=== PATIENT | female | born 1965 | race Caucasian/White ===

== ENCOUNTER 2018-01-22 17:47 | Inpatient (IN) ==
[2018-01-22] MEDS ORDERED: ceFAZolin 2 GM Premix Inj 2 GM/50 ML PIGGYBACK IV.SIG ONE (17:52)
[2018-01-22] MEDS ORDERED: Diphtheria/Tetanus/Pertussis Vaccine Inj 0.5 ML Syringe IM ONE (17:52)
[2018-01-22] MEDS ORDERED: fentaNYL Citrate Inj 100 MCG/2 ML Ampul ONE (17:57)
[2018-01-22 18:14] LABS: Baso % (Auto) 0.2 % (0.0-2.0); Eos % (Auto) 0.6 % (0.0-4.0); Hematocrit 32.5 % (35.0-46.0); Hemoglobin 11.1 gm/dL (11.6-15.3); Lymph # (Auto) 1.9 th/mm3 (1.0-4.8); Mean Corpuscular HGB Conc 34.2 % (32.0-36.0); Mean Corpuscular Hemoglobin 30.2 pg (27.0-34.0); Mean Corpuscular Volume 88.3 fL (80.0-100.0); Mean Platelet Volume 8.9 fL (7.0-11.0); Mono # (Auto) 0.3 th/mm3 (0.0-0.9); Neut # (Auto) 4.3 th/mm3 (1.8-7.7); Neut % (Auto) 66.2 % (16.0-70.0); Platelet Count 166 th/mm3 (150-450); Red Blood Count 3.68 mil/mm3 (4.00-5.30); Red Cell Distribution Width 13.4 % (11.6-17.2); White Blood Count 6.5 th/mm3 (4.0-11.0)
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
[2018-01-22] MEDS ORDERED: Bisacodyl 10 MG Supp RECTAL PRN (18:20)
[2018-01-22] MEDS ORDERED: Morphine Inj 4 MG/ML Vial IV.PUSH PRN (18:20)
[2018-01-22] MEDS ORDERED: Post-op Orders (for Pharmacy) OTHER STA (18:20)
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
[2018-01-22] MEDS ORDERED: Lidocaine 1% Inj 30 ML Vial INFILTRATN ONE (18:28)
[2018-01-22] MEDS ORDERED: HYDROmorphone PF Inj 2 MG/ML Vial IV.PUSH PRN ×2 (18:29→22:57)
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
[2018-01-22 18:40] LABS: Activated Partial Thrombo Time 21.7 sec (24.3-30.1); INR 1.4 Ratio; Prothrombin Time 13.8 sec (9.8-11.6)
[2018-01-22] MEDS ORDERED: Lidocaine PF 1% Inj 30 ML Vial ONE (18:47)
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
[2018-01-23] MEDS ORDERED: Morphine Inj 4 MG/ML Vial IV.PUSH PRN (02:42)
[2018-01-23] MEDS: Lidocaine 5% Patch T-DERMAL SCH ×2 (03:41→13:56)
[2018-01-23] MEDS: Methocarbamol 500 MG Tablet PO SCH ×4 (03:44→21:59)
[2018-01-23] MEDS: Senna/Docusate Sodium 8.6/50 MG Tablet PO SCH ×3 (03:45→21:57)
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
[2018-01-23 13:42] LABS: Baso % (Auto) 0.1 % (0.0-2.0); Hematocrit 33.3 % (35.0-46.0); Hemoglobin 11.7 gm/dL (11.6-15.3); Lymph % (Auto) 10.5 % (9.0-44.0); Mean Corpuscular HGB Conc 35.2 % (32.0-36.0); Mean Corpuscular Hemoglobin 30.7 pg (27.0-34.0); Mean Platelet Volume 9.3 fL (7.0-11.0); Mono # (Auto) 0.7 th/mm3 (0.0-0.9); Mono % (Auto) 7.1 % (0.0-8.0); Neut # (Auto) 8.1 th/mm3 (1.8-7.7); Neut % (Auto) 82.3 % (16.0-70.0); Platelet Count 180 th/mm3 (150-450); Red Blood Count 3.83 mil/mm3 (4.00-5.30); Red Cell Distribution Width 13.3 % (11.6-17.2); White Blood Count 9.9 th/mm3 (4.0-11.0)
[2018-01-23 13:54] LABS: Anion Gap 9 meq/L (5-15); Blood Urea Nitrogen 11 mg/dL (7-18); Calcium 8.9 mg/dL (8.5-10.1); Carbon Dioxide 26.2 meq/L (21.0-32.0); Chloride 107 meq/L (98-107); Glomerular Filtration Rate Greater Than 89 mL/min (>89); Glucose,Random 116 mg/dL (74-106); Potassium 3.8 meq/L (3.5-5.1); Sodium 142 meq/L (136-145)
--- NOTE | 2018-01-23 14:34 | XR ---
EXAM DATE: 01/23/2018 1:41 PM EDT AGE/SEX: 53 years / Female INDICATIONS: Right wrist pain. CLINICAL DATA: This is the patient's subsequent encounter. Patient reports that signs and symptoms h ave been present for 2 days and indicates a pain score of 10/10. MEDICAL/SURGICAL HISTORY: None. None. COMPARISON: No prior exams available for comparison. FINDINGS: There is a nondisplaced fracture extending through the distal ulna at the base of the ulnar styloid w ith intra-articular extension. There is subtle lucency in the distal radius which also may reflect fr acture. The alignment is anatomic. CONCLUSION: Fracture of the distal ulna and probable nondisplaced distal radius fracture. Electronically signed by: Rufino Savage MD 01/23/2018 2:33 PM EDT
[2018-01-24 05:08] LABS: Baso % (Auto) 0.2 % (0.0-2.0); Eos % (Auto) 0.8 % (0.0-4.0); Hematocrit 32.7 % (35.0-46.0); Hemoglobin 11.4 gm/dL (11.6-15.3); Lymph # (Auto) 1.3 th/mm3 (1.0-4.8); Lymph % (Auto) 22.3 % (9.0-44.0); Mean Corpuscular HGB Conc 34.7 % (32.0-36.0); Mean Corpuscular Hemoglobin 30.2 pg (27.0-34.0); Mean Platelet Volume 8.9 fL (7.0-11.0); Mono # (Auto) 0.4 th/mm3 (0.0-0.9); Mono % (Auto) 7.3 % (0.0-8.0); Neut % (Auto) 69.4 % (16.0-70.0); Platelet Count 133 th/mm3 (150-450); Red Blood Count 3.76 mil/mm3 (4.00-5.30); Red Cell Distribution Width 13.6 % (11.6-17.2); White Blood Count 5.8 th/mm3 (4.0-11.0)
[2018-01-24 05:32] LABS: Anion Gap 7 meq/L (5-15); Blood Urea Nitrogen 10 mg/dL (7-18); Calcium 8.9 mg/dL (8.5-10.1); Carbon Dioxide 27.9 meq/L (21.0-32.0); Chloride 108 meq/L (98-107); Glomerular Filtration Rate Greater Than 89 mL/min (>89); Glucose,Random 92 mg/dL (74-106); Potassium 3.9 meq/L (3.5-5.1); Sodium 143 meq/L (136-145)
[2018-01-24] MEDS: Methocarbamol 500 MG Tablet PO SCH ×3 (06:24→22:33)
[2018-01-24] MEDS: Senna/Docusate Sodium 8.6/50 MG Tablet PO SCH ×2 (09:38→22:33)
[2018-01-24] MEDS: Enoxaparin Inj 30 MG/0.3 ML Syringe SQ SCH (09:38)
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
--- NOTE | 2018-01-24 14:47 | XR ---
EXAM DATE: 01/24/2018 2:36 PM EDT AGE/SEX: 53 years / Female INDICATIONS: Trauma. CLINICAL DATA: This is the patient's initial encounter. Patient reports that signs and symptoms have been present for 3 days and indicates a pain score of 7/10. MEDICAL/SURGICAL HISTORY: . pneumothorax, broken ribs None. COMPARISON: [facility], CHEST 1V SINGLE AP, 01/23/2018. . FINDINGS: The chest is stable in appearance. Tiny pneumothorax described on prior CT is not visualized. Multiple right-sided rib fractures are again noted. Mild atelectasis remains evident in the left base. Heart and mediastinal structures are stable. CONCLUSION: Stable chest without radiographically apparent pneumothorax. Right-sided rib fractures again noted. Stable mild left basilar atelectasis. Electronically signed by: Jose Cantrell MD 01/24/2018 2:46 PM EDT
[2018-01-24] MEDS: Lidocaine 5% Patch T-DERMAL SCH (15:43)
[2018-01-25] MEDS: Enoxaparin Inj 30 MG/0.3 ML Syringe SQ SCH ×3 (02:31→22:26)
[2018-01-25] MEDS: Methocarbamol 500 MG Tablet PO SCH ×2 (06:40→14:42)
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
[2018-01-25] MEDS: Lidocaine 5% Patch T-DERMAL SCH (09:02)
[2018-01-25] MEDS: Senna/Docusate Sodium 8.6/50 MG Tablet PO SCH ×2 (09:02→22:18)
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
[2018-01-25] MEDS: Melatonin 5 MG Tablet PO SCH (22:25)
[2018-01-26] MEDS: Melatonin 5 MG Tablet PO SCH ×2 (08:45→21:38)
[2018-01-26] MEDS: Methocarbamol 500 MG Tablet PO SCH ×2 (08:46→14:37)
[2018-01-26] MEDS: Senna/Docusate Sodium 8.6/50 MG Tablet PO SCH ×2 (09:05→21:37)
[2018-01-26] MEDS: Lidocaine 5% Patch T-DERMAL SCH (09:06)
[2018-01-26] MEDS: Enoxaparin Inj 30 MG/0.3 ML Syringe SQ SCH (09:06)
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
[2018-01-26] MEDS: Rivaroxaban 10 MG Tablet PO SCH (17:15)
[2018-01-27 06:18] LABS: Baso % (Auto) 0.5 % (0.0-2.0); Eos # (Auto) 0.2 th/mm3 (0.0-0.4); Eos % (Auto) 4.5 % (0.0-4.0); Hemoglobin 11.7 gm/dL (11.6-15.3); Lymph # (Auto) 1.4 th/mm3 (1.0-4.8); Lymph % (Auto) 32.6 % (9.0-44.0); Mean Corpuscular HGB Conc 34.6 % (32.0-36.0); Mean Corpuscular Hemoglobin 30.1 pg (27.0-34.0); Mean Corpuscular Volume 87.1 fL (80.0-100.0); Mean Platelet Volume 8.3 fL (7.0-11.0); Mono # (Auto) 0.4 th/mm3 (0.0-0.9); Mono % (Auto) 10.1 % (0.0-8.0); Neut # (Auto) 2.3 th/mm3 (1.8-7.7); Neut % (Auto) 52.3 % (16.0-70.0); Platelet Count 184 th/mm3 (150-450); White Blood Count 4.3 th/mm3 (4.0-11.0)
[2018-01-27 06:47] LABS: Anion Gap 8 meq/L (5-15); Blood Urea Nitrogen 10 mg/dL (7-18); Calcium 9.5 mg/dL (8.5-10.1); Carbon Dioxide 29.9 meq/L (21.0-32.0); Chloride 104 meq/L (98-107); Glomerular Filtration Rate Greater Than 89 mL/min (>89); Glucose,Random 96 mg/dL (74-106); Potassium 3.8 meq/L (3.5-5.1); Sodium 142 meq/L (136-145)
[2018-01-27] MEDS ORDERED: Bisacodyl 10 MG Supp RECTAL ONE (08:00)
[2018-01-27] MEDS: Lidocaine 5% Patch T-DERMAL SCH (09:01)
[2018-01-27] MEDS: Rivaroxaban 10 MG Tablet PO SCH (09:02)
[2018-01-27] MEDS: Senna/Docusate Sodium 8.6/50 MG Tablet PO SCH ×2 (09:02→21:03)
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
[2018-01-27] MEDS: Melatonin 5 MG Tablet PO SCH (21:03)
[2018-01-28] MEDS ORDERED: Magnesium Citrate Liq 300 ML Bottle PO ONE (08:00)
[2018-01-28] MEDS: Rivaroxaban 10 MG Tablet PO SCH (09:55)
[2018-01-28] MEDS: Senna/Docusate Sodium 8.6/50 MG Tablet PO SCH ×2 (09:55→21:17)
[2018-01-28] MEDS: Lidocaine 5% Patch T-DERMAL SCH (09:56)
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
[2018-01-28] MEDS: Melatonin 5 MG Tablet PO SCH (22:39)
[2018-01-29] MEDS: Senna/Docusate Sodium 8.6/50 MG Tablet PO SCH (09:40)
[2018-01-29] MEDS: Rivaroxaban 10 MG Tablet PO SCH (09:42)
[2018-01-29] MEDS: Lidocaine 5% Patch T-DERMAL SCH (09:43)
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
[2018-01-29] MEDS ORDERED: Bisacodyl 10 MG Supp RECTAL ONE (14:46)
[2018-01-30] MEDS: Senna/Docusate Sodium 8.6/50 MG Tablet PO SCH ×3 (00:01→22:30)
[2018-01-30] MEDS: Rivaroxaban 10 MG Tablet PO SCH (09:53)
[2018-01-30] MEDS: Lidocaine 5% Patch T-DERMAL SCH (10:01)
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
[2018-01-30] MEDS: Melatonin 5 MG Tablet PO SCH ×2 (23:58)
[2018-01-31 00:22] LABS: Amphetamine Screen,Urine Neg (Neg); Barbiturate Screen,Urine Neg (Neg); Cannabinoid Screen,Urine Neg (Neg); Cocaine Screen,Urine Neg (Neg)
[2018-01-31 00:59] LABS: Opiate Screen,Urine Neg (Neg)
[2018-01-31] MEDS: Rivaroxaban 10 MG Tablet PO SCH (09:22)
[2018-01-31] MEDS: Senna/Docusate Sodium 8.6/50 MG Tablet PO SCH ×2 (09:22→22:08)
[2018-01-31] MEDS: Lidocaine 5% Patch T-DERMAL SCH (09:23)
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
[2018-01-31] MEDS: Melatonin 5 MG Tablet PO SCH (22:09)
[2018-02-01 04:43] LABS: Baso % (Auto) 0.3 % (0.0-2.0); Eos # (Auto) 0.2 th/mm3 (0.0-0.4); Eos % (Auto) 3.8 % (0.0-4.0); Hematocrit 34.4 % (35.0-46.0); Hemoglobin 11.9 gm/dL (11.6-15.3); Lymph # (Auto) 1.4 th/mm3 (1.0-4.8); Lymph % (Auto) 26.1 % (9.0-44.0); Mean Corpuscular HGB Conc 34.6 % (32.0-36.0); Mean Corpuscular Volume 86.5 fL (80.0-100.0); Mean Platelet Volume 7.7 fL (7.0-11.0); Mono # (Auto) 0.5 th/mm3 (0.0-0.9); Mono % (Auto) 8.5 % (0.0-8.0); Neut # (Auto) 3.3 th/mm3 (1.8-7.7); Neut % (Auto) 61.3 % (16.0-70.0); Platelet Count 290 th/mm3 (150-450); Red Blood Count 3.97 mil/mm3 (4.00-5.30); White Blood Count 5.4 th/mm3 (4.0-11.0)
[2018-02-01 04:45] LABS: Anion Gap 8 meq/L (5-15); Blood Urea Nitrogen 14 mg/dL (7-18); Calcium 9.3 mg/dL (8.5-10.1); Carbon Dioxide 28.8 meq/L (21.0-32.0); Chloride 104 meq/L (98-107); Glomerular Filtration Rate Greater Than 89 mL/min (>89); Glucose,Random 86 mg/dL (74-106); Potassium 3.8 meq/L (3.5-5.1); Sodium 141 meq/L (136-145)
[2018-02-01] MEDS: Rivaroxaban 10 MG Tablet PO SCH (09:23)
[2018-02-01] MEDS: Lidocaine 5% Patch T-DERMAL SCH (09:24)
[2018-02-01] MEDS: Senna/Docusate Sodium 8.6/50 MG Tablet PO SCH (09:24)
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
== END 2018-02-01 13:54 ==
LOC: NEPI 17:47 → NEDA 18:20 → EDBD 18:20 → N06 01-23 03:02
PROVIDERS: ADMIT Surgery Trauma Surgery; ATTEND Surgery Trauma Surgery